=== PATIENT | female | born 1960 | race Caucasian/White ===

== ENCOUNTER 2020-06-25 07:22 | Outpatient (CLI) | payer OTHER, SELFPAY ==
--- NOTE | 2020-06-25 06:51 | ECG_ITS ---
[facility] Test Date: 2020-06-25 Pat Name: Johanny Paulino Department: Room: Gender: Female Functional Consultant: : 1960 Requested By: Prabhu Cortez Order Number: [id number] Joaquin MD: PRABHU CORTEZ Interpretive Statements NAME OF STUDY: LEXISCAN SESTAMIBI STRESS TEST INDICATION: Chest Pain, NOTE: Please note that this is the electrocardiogram portion of the Lexiscan/Sestamibi stress test. The perfusion scan will be documented separately. DATA: Baseline heart rate was 64 beats per minute. Baseline blood pressure was 126/56 millimeters of mercury. Target heart rate was 159. Maximum heart rate achieved was 112. which was 70 % of the predicted target heart rate. Maximum blood pressure was 158/72 millimeters of mercury. The reason for ending the test was completion of the protocol. The patient did not experience any symptoms. ELECTROCARDIOGRAM: BASELINE: Sinus rhythm. Normal axis. Otherwise, no ST-T changes suggestive of ischemia noted. No arrhythmia noted. EXERCISE: After Lexiscan injection, no ST-T changes suggestive of ischemic noted. No arrhythmia noted. CONCLUSION: Please note due to baseline abnormality of the EKG specificity and sensitivity of the EKG portion of LexiScan MIBI stress test will be low 1. EKG not suggestive of ischemia 2. Lexiscan injection unremarkable. 3. Perfusion scan will be documented separately. Electronically Signed On 06-29-2020 20:06:06 MEDICAL INSURANCE CODING SPECIALIST by PRABHU CORTEZ [id number]
--- NOTE | 2020-06-25 06:51 | NMCV_ITS ---
NM josephine perf SPECT r/s* [id number] Johanny Paulino Age: 60 Gender: F : 1960 Exam Date: 06/25/2020 07:50 Ordering Phys: Tamar Cortez MD ([email or web address]) Technologist: ROCIO Wong Exam Location: [facility] Indications: CHEST PAIN STRESS TEST [facility] IMAGE PROTOCOL Rest/Stress 1 Lexiscan Day Radiopharmaceutical Dose (mCi) Administration Site Administered by Rest: Tc-99m 10.6 IV ROCIO De La Rosa Sestamibi Stress:Tc-99m 32.8 IV ROCIO De La Rosa Sestamibi Rest: 25-Jun-2020 60 Discovery 630 Stress: 25-Jun-2020 30 Discovery 630 0.4mg Lexiscan. Images obtained in supine and prone position. SPECT RESULTS Technical Quality: Excellent Raw Data Analysis: Normal Image Corrections: No attenuation or motion correction applied Summed Stress Score: 0 Summed Rest Score: 0 Summed Difference Score: 0 PERFUSION FINDINGS SPECT images demonstrate homogeneous tracer distribution throughout the myocardium. FUNCTIONAL RESULTS (calculated via Gated SPECT) Stress Image LV EF (%): 73 Stress EDV (mL):66 TID: 1 Stress ESV (mL):18 Rest Image LV EF (%): 73 FUNCTIONAL FINDINGS: There is normal left ventricular systolic function. IMPRESSIONS Myocardial perfusion imaging is normal and low probability of obstructive coronary artery disease. EKG segment will be documented separately. Tamar Cortez MD (Electronically Signed) Final Date: 26 June 2020 15:25 S
[2020-06-25 06:53] VITALS: BMI 24.7
[2020-06-25] MEDS: regadenoson 0.4 Mg/5 ml Syringe IVP (08:28)
[2020-06-25 08:36] VITALS: BP 154/68; PULSE 95
== END 2020-06-25 07:23 | disposition home or self-care (01) ==
LOC: CDL 07:22
PROVIDERS: PCP Family Medicine; Visit Provider Internal Medicine Cardiovascular Disease
DX: R07.9 Chest pain, unspecified (principal); I25.10 Atherosclerotic heart disease of native coronary artery without angina pectoris
CPT/HCPCS: 78452; 93017; A9500; J2785

== ENCOUNTER → 2021-08-15 15:29 | Outpatient (BNVA) | payer OTHER, SELFPAY | PROVIDERS: PCP Family Medicine; Visit Provider Internal Medicine Cardiovascular Disease | DX: R00.2 Palpitations (principal); I10 Essential (primary) hypertension; I25.10 Atherosclerotic heart disease of native coronary artery without angina pectoris; F17.200 Nicotine dependence, unspecified, uncomplicated; E78.5 Hyperlipidemia, unspecified | CPT/HCPCS: 80053; 80061; 83721; 84443; 85025 ==

== ENCOUNTER 2021-10-19 14:05 | Emergency (ER) | payer OTHER, SELFPAY ==
[2021-10-19 14:21] VITALS: BP 144/84; PULSE 107; RESP 16; TEMP 37.2; O2SAT 96; BMI 23.2
[2021-10-19 15:42] LABS: Basophils # 0.1 10^3/uL (0.0-0.1); Basophils % 0.4 %; Eosinophils # 0.1 10^3/uL (0.0-0.8); Eosinophils % 0.3 %; Hematocrit 56.3 % (37.0-47.0); Hemoglobin 19.2 g/dL (11.5-15.3); Lymphocytes # 0.9 10^3/uL (0.8-4.8); Lymphocytes % 5.8 %; Mean Corpuscular HGB Conc 34.1 g/dL (30.0-36.0); Mean Corpuscular Hemoglobin 31.4 pg (28.0-34.0); Mean Platelet Volume 10.9 fL (7.4-10.4); Monocytes # 0.5 10^3/uL (0.2-0.9); Monocytes % 3.3 %; Neutrophils # 14.44 10^3/uL (1.8-7.7); Neutrophils % 89.8 %; Nucleated Red Blood Cells % 0 %; Platelet Count 230 10^3/cmm (130-400); Red Blood Count 6.12 10^6/uL (4.1-5.3); Red Cell Distribution Width 13.9 % (12.1-15.1); White Blood Count 16.1 10^3/uL (4.0-10.0)
--- NOTE | 2021-10-19 16:06 | ED_ITS ---
HPI - Nausea/Vomiting/Diarrhea General: Chief complaint: Nausea/Vomiting/Diarrhea Stated complaint: n/v Time Seen by Provider: 10/19/21 15:54 Source: patient Mode of arrival: ambulatory Limitations: no limitations History of Present Illness: 61-year-old female presents emergency room with complaint of nausea vomiting diarrhea and chills that began last night she denies any medic easy melena hematemesis cough confirms she has had little bit of cough patient is a regular smoker who is a low-grade fever. She denies any anosmia. Diarrhea has already resolved cough nausea and vomiting are persisting. MD elicited complaint: nausea, vomiting and diarrhea Onset (ago): day(s) (2) Description of vomiting: watery and bilious Description of diarrhea: lose Associated nausea: Yes Associated abdominal pain: Yes Location of pain: Diffuse Pain consistency: intermittent Severity: mild Quality: cramping Exacerbating factors: none Associated symtoms: Reports nausea; Denies altered mental status, anxiety, bloating, change in vision, chest pain, cough, diaphoresis, decreased urine output, dizziness, dysuria, epistaxis, fatigue, fecal incontinence, fevers/chills, headache(s), anorexia, malaise, myalgias, numbness, palpitations, rash, short of breath, syncope, tenesmus, tinnitus or weakness Review of Systems Const: Denies: fever(s), chills, fatigue, malaise or diaphoresis Eyes: Denies: change in vision ENMT: Denies: tinnitus or epistaxis Card: Denies: chest pain, palpitations, irregular heart rhythm, edema, swelling of feet/ankles or syncope Resp: Denies: dyspnea, productive cough or non-productive cough GI: Reports: abdominal pain, nausea and vomiting; Denies: hematemesis, bloating, fecal incontinence or hematochezia : Denies: flank pain, difficulty voiding, dysuria, urinary frequency or urinary urgency Skin/Breast: Denies: rash or pruritus Neuro: Denies: headache(s) or dizziness Psych: Denies: anxiety PFSH ED PFSH: Medical History ASHD (arteriosclerotic heart disease) Dyslipidemia Hypertension Palpitation Smoker Surgical History S/P cholecystectomy S/P hysterectomy S/P PTCA (percutaneous transluminal coronary angioplasty) Family History Mother Hypertension Heart disease Social History Smoking and tobacco status: current every day smoker History of recent travel: No Physical Exam 2 Const: COMMON NORMALS: no acute distress EXAM LIMITATIONS: no altered mental status GENERAL APPEARANCE: cooperative and comfortable ORIENTATION/CONSCIOUSNESS: Yes awake, Yes oriented to person, Yes oriented to place and Yes oriented to time HENMT: COMMON NORMALS: normocephalic and atraumatic HEAD & SCALP: normocephalic and atraumatic Neck/C-Spine: COMMON NORMALS: no JVD Resp: COMMON NORMALS: normal respiratory effort, No retractions, No use of accessory muscles and clear to auscultation bilaterally AUSCULTATION: clear to auscultation bilaterally Cardio: COMMON NORMALS: no JVD, regular rate, regular rhythm and No murmurs present (Cardio) RATE: regular rate RHYTHM: regular rhythm GI: COMMON NORMALS: Soft to palpation and No hepatosplenomegaly present AUSCULTATION: Yes normoactive bowel sounds PALPATION: Yes Soft to palpation, No Tenderness to palpation present (GI), No Guarding due to palpation present (GI) and Yes No hepatosplenomegaly present Extremity: COMMON NORMALS: normal to inspection, capillary refill normal, no clubbing, cyanosis or edema, no calf tenderness and no pedal edema Neuro: SENSORIUM/ORIENTATION: Yes oriented to person, Yes oriented to place and Yes oriented to time Skin: COMMON NORMALS: no rashes or lesions noted GENERAL SKIN EXAM: no rashes or lesions noted Course Vital Signs: Vital signs: Vital Signs Temperature 99 F 10/19/21 14:21 Pulse Rate 107 H 10/19/21 14:21 Respiratory Rate 16 10/19/21 14:21 Blood Pressure 144/84 10/19/21 14:21 Pulse Oximetry 96 10/19/21 14:21 MDM - Nausea/Vomiting/Diarrhea Medical Decision Making Patient is feeling somewhat better. We will go ahead and discharge home clinical diet for the next 24 to 48 hours Phenergan as needed as needed. She wa s polycythemic some of that I think is her hemoconcentration but in addition notably she does have severe COPD and likely sleep apnea as well encouraged her to follow-up with primary care to get both of these evaluated. Medical Records I reviewed the patient's medical records. Lab Data I reviewed the patient's lab results. : 10/19/21 15:21 10/19/21 15:21 Laboratory Results WBC 16.1 10^3/uL (4.0-10.0) H 10/19/21 15:21 RBC 6.12 10^6/uL (4.1-5.3) H 10/19/21 15:21 Hgb 19.2 g/dL (11.5-15.3) H 10/19/21 15:21 Hct 56.3 % (37.0-47.0) H 10/19/21 15:21 MCV 92.0 fl (81-99) 10/19/21 15:21 MCH 31.4 pg (28.0-34.0) 10/19/21 15:21 MCHC 34.1 g/dL (30.0-36.0) 10/19/21 15:21 RDW 13.9 % (12.1-15.1) 10/19/21 15:21 Plt Count 230 10^3/cmm (130-400) 10/19/21 15:21 MPV 10.9 fL (7.4-10.4) H 10/19/21 15:21 Neut % (Auto) 89.8 % 10/19/21 15:21 Lymph % (Auto) 5.8 % 10/19/21 15:21 [place] % (Auto) 3.3 % 10/19/21 15:21 Eos % (Auto) 0.3 % 10/19/21 15:21 Baso % (Auto) 0.4 % 10/19/21 15:21 Neut # (Auto) 14.44 10^3/uL (1.8-7.7) H 10/19/21 15:21 Lymph # (Auto) 0.9 10^3/uL (0.8-4.8) 10/19/21 15:21 [place] # (Auto) 0.5 10^3/uL (0.2-0.9) 10/19/21 15:21 Eos # (Auto) 0.1 10^3/uL (0.0-0.8) 10/19/21 15:21 Baso # (Auto) 0.1 10^3/uL (0.0-0.1) 10/19/21 15:21 Nucleated RBC % (auto) 0 % 10/19/21 15:21 Nucleated RBCs # 0.0 /100WBC 10/19/21 15:21 Sodium 133 mmol/L (136-145) L 10/19/21 15:21 Potassium 4.0 mmol/L (3.5-5.1) 10/19/21 15:21 Chloride 98 mmol/L (98-107) 10/19/21 15:21 Carbon Dioxide 21 mmol/L (22-29) L 10/19/21 15:21 Anion Gap 18.0 (5-19) 10/19/21 15:21 BUN 15 mg/dL (8-23) 10/19/21 15:21 Creatinine 0.8 mg/dL (0.5-0.9) 10/19/21 15:21 GFR Calculation 72.7 mL/min (90-130) L 10/19/21 15:21 Glucose 108 mg/dL (65-115) 10/19/21 15:21 Calculated Osmolality 277 mOsm/kg (285-295) L 10/19/21 15:21 Calcium 9.2 mg/dL (8.5-10.5) 10/19/21 15:21 Total Bilirubin 0.5 mg/dL (0.15-1.2) 10/19/21 15:21 AST 21 U/L (0-32) 10/19/21 15:21 ALT 25 U/L (0-33) 10/19/21 15:21 Alkaline Phosphatase 121 IU/L (35-105) H 10/19/21 15:21 Total Protein 8.1 g/dL (6.6-8.7) 10/19/21 15:21 Albumin 4.7 g/dL (3.5-5.2) 10/19/21 15:21 Globulin 3.4 g/dL (1.3-4.6) 10/19/21 15:21 Lipase 14 U/L (13-60) 10/19/21 15:21 Urine Color Yellow (Yellow) 10/19/21 17:14 Urine Appearance Clear (CLEAR) 10/19/21 17:14 Urine pH 6 (5-7) 10/19/21 17:14 Ur Specific [place] 1.015 (1.005-1.030) 10/19/21 17:14 Urine Protein Neg (Negative) 10/19/21 17:14 Urine Glucose (UA) Norm (Normal) 10/19/21 17:14 Urine Ketones 1+ (Negative) H 10/19/21 17:14 Urine Blood Neg (Negative) 10/19/21 17:14 Urine Nitrate Negative (Negative) 10/19/21 17:14 Urine Bilirubin 1+ (Negative) H 10/19/21 17:14 Urine Urobilinogen Norm mg/dL (Negative) 10/19/21 17:14 Ur Leukocyte Esterase Negative (Negative) 10/19/21 17:14 Discharge Plan Discharge Patient Disposition: Home Clinical Impression: Gastroenteritis, Polycythemia, secondary Condition: Stable Prescriptions: New promethazine 25 mg tablet 25 mg PO Q6H PRN (Reason: nausea and vomiting) Qty: 20 0RF No Action lisinopril 2.5 mg tablet 2.5 mg PO DAILY 0RF clopidogrel [Plavix] 75 mg tablet 75 mg PO DAILY 0RF paroxetine HCl 10 mg tablet 10 mg PO DAILY 0RF nitroglycerin [Nitrostat] 0.4 mg tablet, sublingual 0.4 mg SUBLINGUAL Q5M PRN (Reason: Chest Pain) 0RF oxybutynin chloride 10 mg tablet extended release 24hr 10 mg PO DAILY 0RF rosuvastatin 10 mg tablet 10 mg PO DAILY 0RF ascorbic acid (vitamin C) 500 mg tablet 500 mg PO DAILY 0RF isosorbide mononitrate 30 mg tablet extended release 24 hr 30 mg PO DAILY Qty: 90 3RF metoprolol tartrate 25 mg tablet 12.5 mg PO BID 0RF Nasonex 50 mcg/actuation [place],Non-Aerosol 2 spray INTRANASAL DAILY PRN (Reason: Allergy Symptoms) 0RF Rx Instructions: administer into each nostril albuterol sulfate 90 mcg/actuation Hfa Aerosol Inhaler 2 puff INHALATION QID PRN (Reason: Shortness Of Breath) 0RF omeprazole 20 mg Tablet,Delayed Release (Dr/Ec) 20 mg PO DAILY 0RF Combivent Respimat 20-100 mcg/actuation Mist 1 puff INHALATION Q4H 0RF Discharge Orders: Discharge ED (Routine); Ordered 10/19/21 Ordered By: Austin Camara Referrals: Javier Collins, [Primary Care Provider] - Discharge Diet: Clear Liquid Discharge Activity: Increase activity as tolerated Patient Instructions: Opioid Safety Activity Restrictions/Additional Instructions: Clear liquid diet for 1 to 2 days and advance as tolerated use promethazine as needed. Return if you have further problems. Coding Level of Care Code ED Staff [employer] Information [employer] Officer for Zayg Fwd Exam Comprehensive
[2021-10-19 16:10] LABS: Alanine Aminotransferase 25 U/L (0-33); Albumin Level 4.7 g/dL (3.5-5.2); Alkaline Phosphatase 121 IU/L (35-105); Aspartate Amino Transferase 21 U/L (0-32); Blood Urea Nitrogen 15 mg/dL (8-23); Calcium 9.2 mg/dL (8.5-10.5); Carbon Dioxide 21 mmol/L (22-29); Chloride 98 mmol/L (98-107); Globulin 3.4 g/dL (1.3-4.6); Glomerular Filtration Rate 72.7 mL/min (90-130); Glucose 108 mg/dL (65-115); Lipase 14 U/L (13-60); Osmolality Calculated 277 mOsm/kg (285-295); Sodium 133 mmol/L (136-145); Total Bilirubin 0.5 mg/dL (0.15-1.2); Total Protein 8.1 g/dL (6.6-8.7)
[2021-10-19] MEDS: ondansetron 2 mg/ML SDV 2 mL 4 MG IVP (16:23)
[2021-10-19] MEDS: sodium chloride 0.9% 1,000 ML 999 ML IV (16:23)
[2021-10-19 17:20] LABS: Add Urine Microscopic? NO; Charge for UA Resulting for Rev
[2021-10-19 17:27] LABS: Specific Gravity, Urine 1.015 (1.005-1.030); Urine Appearance Clear (CLEAR); Urine Color Yellow (Yellow); pH Urine 6 (5-7)
[2021-10-19 17:28] LABS: Bilirubin Urine 1+ (Negative); Blood Urine Neg (Negative); Glucose Urine UA Norm (Normal); Ketones Urine 1+ (Negative); Leukocyte Esterase Urine Negative (Negative); Nitrate Urine Negative (Negative); Protein Urine Neg (Negative); Urobilinogen Urine Norm (Negative)
== END 2021-10-19 17:58 | disposition home or self-care (01) ==
PROVIDERS: Physician Assistant; Emergency Provider Family Medicine; PCP Family Medicine
DX: K52.9 Noninfective gastroenteritis and colitis, unspecified (principal); D75.1 Secondary polycythemia; Z79.02 Long term (current) use of antithrombotics/antiplatelets; E78.5 Hyperlipidemia, unspecified; I10 Essential (primary) hypertension; F17.210 Nicotine dependence, cigarettes, uncomplicated
CPT/HCPCS: 80053; 81003; 83690; 85025; 96361; 96374; 99284; J2405; J7030

== ENCOUNTER 2022-02-22 08:08 | Outpatient (CLI) | payer OTHER, SELFPAY ==
--- NOTE | 2022-02-22 08:36 | MM_ITS ---
WS: [id number] VIEWS: MLO and CC views both breasts. 3D digital tomosynthesis is also included in this exam. Comparison made with prior exam of 04/03/2013, 08/10/2014, 01/28/2015, 10/04/2015, 04/04/2018.. Findings: There was no sign of mass, architectural distortion or suspicious calcification in either breast. Sc attered fibroglandular densities MM/[place] [id number] Impression: BI-RADS: 2-Benign FOLLOW-UP: 1 Year Follow-up This mammogram was also analyzed by the Computer Aided Detection System R2 Imag e Welding Lead Burner.
== END 2022-02-22 08:09 | disposition home or self-care (01) ==
LOC: RAD 08:09
PROVIDERS: PCP Family Medicine; Visit Provider Family Medicine
DX: Z12.31 Encounter for screening mammogram for malignant neoplasm of breast (principal)
CPT/HCPCS: 77063; 77067

== ENCOUNTER → 2022-07-11 10:50 | Outpatient (BNVA) | payer OTHER, SELFPAY | PROVIDERS: PCP Family Medicine; Visit Provider Family Medicine | DX: D75.1 Secondary polycythemia (principal); E78.5 Hyperlipidemia, unspecified; I10 Essential (primary) hypertension; F17.200 Nicotine dependence, unspecified, uncomplicated; I25.10 Atherosclerotic heart disease of native coronary artery without angina pectoris | CPT/HCPCS: 80053; 80061; 82728; 83540; 85025 ==

== ENCOUNTER → 2022-07-19 10:17 | Outpatient (BNVA) | payer OTHER, SELFPAY | PROVIDERS: PCP Family Medicine; Visit Provider Family Medicine | DX: D75.1 Secondary polycythemia (principal); E78.5 Hyperlipidemia, unspecified; I10 Essential (primary) hypertension; R00.2 Palpitations | CPT/HCPCS: 81219; 81256; 81270; 81279; 81339; 81403; 81479; 82668; 83550; 84466 ==

== ENCOUNTER 2022-08-29 10:15 | Oncology outpatient (recurring) (ONCR) | payer OTHER, SELFPAY ==
[2022-08-29 12:26] LABS: Basophils # 0.1 10^3/uL (0.0-0.1); Basophils % 1.1 %; Eosinophils # 0.3 10^3/uL (0.0-0.8); Hematocrit 50.3 % (37.0-47.0); Hemoglobin 16.7 g/dL (11.5-15.3); Lymphocytes # 2.7 10^3/uL (0.8-4.8); Lymphocytes % 27.9 %; Mean Corpuscular HGB Conc 33.2 g/dL (30.0-36.0); Mean Corpuscular Hemoglobin 31.2 pg (28.0-34.0); Mean Corpuscular Volume 93.8 fl (81-99); Mean Platelet Volume 11.2 fL (7.4-10.4); Monocytes # 0.8 10^3/uL (0.2-0.9); Monocytes % 8.3 %; Neutrophils # 5.74 10^3/uL (1.8-7.7); Neutrophils % 59.4 %; Nucleated Red Blood Cells % 0 %; Platelet Count 237 10^3/cmm (130-400); Red Blood Count 5.36 10^6/uL (4.1-5.3); Red Cell Distribution Width 13.5 % (12.1-15.1); White Blood Count 9.7 10^3/uL (4.0-10.0)
[2022-08-29 12:53] LABS: Alanine Aminotransferase 27 U/L (0-33); Albumin Level 4.2 g/dL (3.5-5.2); Alkaline Phosphatase 111 U/L (35-105); Anion Gap 17.1 (5-19); Aspartate Amino Transferase 23 U/L (0-32); Blood Urea Nitrogen 11 mg/dL (8-23); Calcium 9.1 mg/dL (8.5-10.5); Carbon Dioxide 22 mmol/L (22-29); Chloride 103 mmol/L (98-107); Creatinine Clr Calc Pharmacy 71.9296; Globulin 2.6 g/dL (1.3-4.6); Glomerular Filtration Rate 84.5 mL/min (90-130); Glucose 100 mg/dL (65-115); Lactate Dehydrogenase 158 U/L (135-214); Osmolality Calculated 285 mOsm/kg (285-295); Potassium 4.1 mmol/L (3.5-5.1); Sodium 138 mmol/L (136-145); Total Bilirubin 0.4 mg/dL (0.15-1.2); Total Protein 6.8 g/dL (6.6-8.7)
[2022-08-30 15:08] LABS: Erythropoietin 10.3 mIU/mL (2.6-18.5)
[2022-09-06 16:10] LABS: CALR Exon 9 Mutation NOT DETECTED (NOT DETECTED); CSF3R Exon 14/17 Mutation NOT DETECTED (NOT DETECTED); JAK2 Exon 12 Mutation NOT DETECTED (NOT DETECTED); JAK2 V617 Block Specimen ID NG; JAK2 V617 Clinical Indication NG; JAK2 V617 Mutation NOT DETECTED (NOT DETECTED); JAK2 V617 Specimen Source NG; MPL Exon 12 Mutation NOT DETECTED (NOT DETECTED)
== END 2022-09-27 23:59 | disposition home or self-care (01) ==
PROVIDERS: PCP Family Medicine; Visit Provider Internal Medicine Medical Oncology
DX: D75.1 Secondary polycythemia (principal)
CPT/HCPCS: 36415; 80053; 81270; 81279; 81339; 81479; 82668; 83615; 85025

== ENCOUNTER 2022-12-18 12:11 | Oncology outpatient (recurring) (ONCR) | payer OTHER, SELFPAY ==
[2022-12-18 12:35] VITALS: BP 148/80; PULSE 68; RESP 17; TEMP 35.9; O2SAT 94
[2022-12-18 12:54] LABS: Basophils # 0.1 10^3/uL (0.0-0.1); Basophils % 1.1 %; Eosinophils # 0.3 10^3/uL (0.0-0.8); Eosinophils % 2.9 %; Hematocrit 47.9 % (37.0-47.0); Hemoglobin 16.2 g/dL (11.5-15.3); Lymphocytes # 2.4 10^3/uL (0.8-4.8); Lymphocytes % 21.7 %; Mean Corpuscular HGB Conc 33.8 g/dL (30.0-36.0); Mean Corpuscular Volume 91.6 fl (81-99); Mean Platelet Volume 10.8 fL (7.4-10.4); Monocytes % 8.7 %; Neutrophils # 7.32 10^3/uL (1.8-7.7); Neutrophils % 65.2 %; Nucleated Red Blood Cells % 0 %; Platelet Count 236 10^3/cmm (130-400); Red Blood Count 5.23 10^6/uL (4.1-5.3); Red Cell Distribution Width 13.6 % (12.1-15.1); White Blood Count 11.2 10^3/uL (4.0-10.0)
[2022-12-18 13:09] LABS: Alanine Aminotransferase 23 U/L (0-33); Albumin Level 4.1 g/dL (3.5-5.2); Alkaline Phosphatase 101 U/L (35-105); Anion Gap 13.1 (5-19); Aspartate Amino Transferase 18 U/L (0-32); Blood Urea Nitrogen 11 mg/dL (8-23); Calcium 8.7 mg/dL (8.5-10.5); Carbon Dioxide 23 mmol/L (22-29); Chloride 105 mmol/L (98-107); Globulin 2.4 g/dL (1.3-4.6); Glucose 87 mg/dL (65-115); Osmolality Calculated 283 mOsm/kg (285-295); Potassium 4.1 mmol/L (3.5-5.1); Sodium 137 mmol/L (136-145); Total Bilirubin 0.3 mg/dL (0.15-1.2); Total Protein 6.5 g/dL (6.6-8.7)
== END 2022-12-28 23:59 | disposition home or self-care (01) ==
PROVIDERS: PCP Electrodiagnostic Medicine; Visit Provider Internal Medicine Medical Oncology
DX: D75.1 Secondary polycythemia (principal)
CPT/HCPCS: 36415; 80053; 85025

== ENCOUNTER 2023-02-08 10:51 | Outpatient (CLI) | payer OTHER, SELFPAY ==
--- NOTE | 2023-02-08 11:44 | US_ITS ---
WS: [id number] THYROID ULTRASOUND HISTORY: ABNORMAL THYROID FUNCTION TESTS COMPARISON: 06/27/2011 Right lobe: 1.4 cm x 1.4 cm x 4.1 cm (w x ap x l). Volume: 4.4 cm3. Normal size and echotexture. No significant are dominant nodules are present. Previously described co lloid cyst in the central gland is not identified today. Left lobe: 1.2 cm x 1.2 cm x 4.3 cm (w x ap x l). Volume: 3.2 cm3. Normal size and echotexture. No significant or dominant nodules are present. Colloid cyst mid LEFT gl and measures 5 mm. Isthmus: 0.3 cm. IMPRESSION: 1. No suspicious of dominant nodule or microcalcifications. 2. Tiny colloid cyst central LEFT gland. No additional follow-up necessary.
== END 2023-02-08 10:52 | disposition home or self-care (01) ==
LOC: RAD 10:52
PROVIDERS: PCP Electrodiagnostic Medicine; Visit Provider Electrodiagnostic Medicine
DX: R94.6 Abnormal results of thyroid function studies (principal)
CPT/HCPCS: 76536

== ENCOUNTER 2023-03-19 13:21 | Oncology outpatient (recurring) (ONCR) | payer OTHER, SELFPAY ==
[2023-03-19 12:02] VITALS: BP 129/81; PULSE 73; RESP 16; TEMP 36.6; O2SAT 97
[2023-03-19 12:21] LABS: Basophils # 0.1 10^3/uL (0.0-0.1); Basophils % 1.1 %; Eosinophils # 0.3 10^3/uL (0.0-0.8); Eosinophils % 3.3 %; Hematocrit 45.4 % (36-47); Lymphocytes # 2.5 10^3/uL (0.8-4.8); Lymphocytes % 28.3 %; Mean Corpuscular HGB Conc 34.4 g/dL (30-55); Mean Corpuscular Hemoglobin 31.4 pg (27-33); Mean Corpuscular Volume 91.3 fl (85-98); Mean Platelet Volume 10.8 fL (7.4-10.4); Monocytes # 0.7 10^3/uL (0.2-0.9); Monocytes % 8.3 %; Neutrophils # 5.23 10^3/uL (1.8-7.7); Neutrophils % 58.7 %; Nucleated Red Blood Cells % 0 %; Platelet Count 210 10^3/cmm (157-399); Red Blood Count 4.97 10^6/uL (3.85-5.65); Red Cell Distribution Width 14.3 % (12.1-15.1); White Blood Count 8.91 10^3/uL (3.29-11.43)
== END 2023-03-29 23:59 | disposition home or self-care (01) ==
PROVIDERS: Internal Medicine Medical Oncology; PCP Electrodiagnostic Medicine; Visit Provider Internal Medicine Medical Oncology
DX: D75.1 Secondary polycythemia (principal); Z79.899 Other long term (current) drug therapy
CPT/HCPCS: 36415; 85025

== ENCOUNTER 2023-03-21 07:34 | Outpatient (CLI) | payer OTHER, SELFPAY ==
--- NOTE | 2023-03-21 07:42 | MM_ITS ---
WS: [id number] BILATERAL SCREENING DIGITAL TOMOSYNTHESIS MAMMOGRAM WITH CAD HISTORY: SCREENING COMPARISON: 02/22/2022, 04/04/2018 Bilateral CC and MLO views with tomosynthesis and synthetic mammography submitted. Computer aided det ection analyzed. Breast composition: There are scattered areas of fibroglandular density. No suspicious masses, microc alcifications or architectural distortion. Benign calcifications LEFT breast. IMPRESSION: MM/[place] [id number] BI-RADS: 2-Benign FOLLOW UP: 1 Year Follow-up
== END 2023-03-21 07:35 | disposition home or self-care (01) ==
LOC: RAD 07:34
PROVIDERS: PCP Electrodiagnostic Medicine; Visit Provider Electrodiagnostic Medicine
DX: Z12.31 Encounter for screening mammogram for malignant neoplasm of breast (principal)
CPT/HCPCS: 77063; 77067

== ENCOUNTER 2024-06-04 07:46 | Outpatient (CLI) | payer MEDICARE, OTHER, SELFPAY ==
--- NOTE | 2024-06-04 07:51 | MM_ITS ---
WS: [id number] BILATERAL SCREENING DIGITAL TOMOSYNTHESIS MAMMOGRAM WITH CAD HISTORY: SCREENING COMPARISON: 03/19/2023, 02/22/2022, 04/04/2018 Bilateral CC and MLO views with tomosynthesis and synthetic mammography submitted. Computer aided detection analyzed. Breast composition: There are scattered areas of fibroglandular density. No suspicious masses, microcalcifications or architectural distortion. Benign calcifications LEFT breast. MM/MM scr BI tomosynthesis [id number] IMPRESSION: BI-RADS: 2 - Benign. FOLLOW UP: 1 Year Follow-up
== END 2024-06-04 07:47 | disposition home or self-care (01) ==
LOC: RAD 07:49
PROVIDERS: PCP Electrodiagnostic Medicine; Visit Provider Electrodiagnostic Medicine
DX: Z12.31 Encounter for screening mammogram for malignant neoplasm of breast (principal); R92.323 Mammographic fibroglandular density, bilateral breasts; R92.1 Mammographic calcification found on diagnostic imaging of breast
CPT/HCPCS: 77063; 77067

== ENCOUNTER → 2024-07-01 13:34 | Outpatient (BNVA) | payer MEDICARE, OTHER, SELFPAY | PROVIDERS: PCP Electrodiagnostic Medicine; Visit Provider Internal Medicine | DX: I10 Essential (primary) hypertension (principal); I25.10 Atherosclerotic heart disease of native coronary artery without angina pectoris; E78.5 Hyperlipidemia, unspecified; F17.210 Nicotine dependence, cigarettes, uncomplicated | CPT/HCPCS: 99214 ==

== ENCOUNTER 2024-10-02 19:05 | Emergency (ER) | payer MEDICARE, OTHER, SELFPAY ==
--- NOTE | 2024-10-02 19:07 | ECG_ITS ---
[facility]24[facility]02 Pat Name: Johanny Paulino Department: Room: Gender: Female Book Packer: : 1960 Requested By: Alicia Avery Order Number: [id number] Reading MD: PRABHU MILLAN Measurements Intervals [place] Rate: 78 P: -48 MS: 141 QRS: 76 QRSD: 88 T: 58 QT: 363 QTc: 416 Interpretive Statements ECTOPIC ATRIAL RHYTHM ABNORMAL RHYTHM ECG Compared to ECG 07/16/2017 08:56:25 No significant changes Electronically Signed On 10-04-2024 23:47:44 CDT by PRABHU MILLAN [id number]
[2024-10-02 19:09] VITALS: BP 110/68; PULSE 78; RESP 16; TEMP 36.7; O2SAT 94; BMI 23.0
--- NOTE | 2024-10-02 19:37 | ED_ITS ---
HPI - Chest Pain 2 General: Chief Complaint: Chest Pain Stated Complaint: CP Time Seen by Provider: 10/02/24 19:37 History of Present Illness: Patient is a 64-year-old female with history of CAD,PCI of RCA 2015, on Plavix, smoker, that presented to the ED that started having consistent substernal chest pressure today, that has continued throughout the day. This has been going on and off for the last 2 weeks, however today this was consistent till negative nitroglycerin. She has not had aspirin today. She was stopped on aspirin by her primary senior software development engineer and remains on Plavix for prevention, which patient states she is compliant. She does have association of shortness of breath, however no nausea and vomiting today or with symptoms. This does appear to be getting worse over time per patient. Associated symptoms: Reports dyspnea; Deny abdominal pain, fever(s), nausea, palpitations or vomiting Related Data Home Medications ?Medication ?Instructions ?Recorded ?Confirmed ascorbic acid (vitamin C) 500 mg 500 mg PO DAILY 08/1507/01/24 tablet albuterol sulfate 90 mcg/actuation 2 puff inhalation Q ID PRN 10/19/21 07/01/24 aerosol inhaler Shortness Of Breath ipratropium 20 mcg-albuterol 100 1 puff inhalation Q4H 10/19/21 07/01/24 mcg/actuation mist for inhalation (Combivent Respimat) mometasone 50 mcg/actuation nasal 2 spray intranasal D AILY PRN 10/19/21 07/01/24 spray Allergy Symptoms omeprazole 20 mg tablet,delayed 20 mg PO DAILY 2 07/01/24 release Previous Rx's ?Medication ?Instructions ?Recorded promethazine 25 mg tablet 25 mg PO Q6H PRN nausea and 10/19/21 vomiting #20 tabs clopidogrel 75 mg tablet (Plavix) 75 mg PO DAILY #90 t abs 10/04/22 lisinopril 5 mg tablet 5 mg PO DAILY #90 tabs 10/04 oxybutynin chloride 10 mg 10 mg PO DAILY bladder #90 t abs 10/04/22 tablet,extended release 24 hr metoprolol tartrate 25 mg tablet 25 mg PO DAILY #90 ta bs 11/08/22 rosuvastatin 10 mg tablet 10 mg PO DAILY #90 tabs 10/28 12/20 paroxetine HCl 10 mg tablet 10 mg PO DAILY #90 tabs nitroglycerin 0.4 mg sublingual 0.4 mg sublingual Q5M PRN Chest 07/01/24 tablet (Nitrostat) Pain #26 tabs isosorbide mononitrate 30 mg See Rx Instructions .Rout e 08/11/24 tablet,extended release 24 hr .COMPLEX #90 tabs Allergies Allergy/AdvReac Type Severity Reaction Status Date / Time Penicillins Allergy Unknown Unknown Verified 07/01/24 14:25 Review of Systems 2 General: Reports: 10 or more systems reviewed and unremarkable except in HPI and below Const: Denies: fever(s) or chills ENMT: Denies: throat pain, odynophagia or swelling of lips/tongue Card: Reports: chest pain; Denies: palpitations Resp: Reports: dyspnea; Denies: productive cough GI: Denies: abdominal pain, nausea or vomiting : Denies: flank pain or difficulty voiding Musc: Denies: neck pain, back pain, extremity pain or extremity swelling Neuro: Denies: headache(s) or weakness in extremities Psych: Denies: anxiety or depression PFSH ED 2 PFSH: Medical History Secondary polycythemia Coronary artery disease Dyslipidemia Smoker Palpitation Hypertension ASHD (arteriosclerotic heart disease) Surgical History S/P hysterectomy S/P cholecystectomy S/P PTCA (percutaneous transluminal coronary angioplasty) Family History Mother Hypertension Heart disease Father COPD (chronic obstructive pulmonary disease) Social History Smoking and tobacco/nicotine status: current every day tobacco/nicotine user (1.5 ppd) cigarettes [ Other cigarette details: smoked x 40+ years] Alcohol intake: current Physical Exam 2 Const: COMMON NORMALS: no acute distress, patient oriented x3, no limitations, healthy appearing and alert GENERAL APPEARANCE: cooperative HENMT: COMMON NORMALS: normocephalic, atraumatic and Normal external nose present HEAD & SCALP: normocephalic and atraumatic NOSE: Normal external nose present and Normal nares present GENERAL EAR: hearing grossly impaired MOUTH: Normal oral and palatal mucosa present, lip normal, tongue normal and Normal salivary glands and ducts present THROAT: posterior oropharynx normal and tonsils normal Eye: COMMON NORMALS: Equal, round and reactive pupils present, EOMs intact bilaterally, conjunctivae normal, no scleral icterus and no papilledema G ENERAL EYE: appearance normal, both eyes and all related structures VISUAL ACUITY: Yes acuity normal ALIGNMENT: Yes alignment normal CONJUNCTIVA: Yes conjunctivae normal SCLERA: sclerae normal PUPIL: Yes Equal, round and reactive pupils present EOM: Yes EOM abnormal DIRECT OPHTHALMOSCOPY: Yes no papilledema Neck/C-Spine: COMMON NORMALS: full ROM, no lymphadenopathy and Thyroid normal THYROID: Thyroid normal Lymph: LYMPHATIC: no lymphadenopathy noted and No no lymphedema noted Chest: CHEST: Yes abnormal inspection of the chest and Yes Symmetrical chest wall rise Resp: COMMON NORMALS: normal respiratory effort, No retractions, No use of accessory muscles and clear to auscultation bilaterally AUSCULTATION: clear to auscultation bilaterally Cardio: COMMON NORMALS: regular rate, regular rhythm, S1 normal heart sound present, S2 normal heart sound present and Peripheral pulses 2+ throughout R ATE: regular rate RHYTHM: regular rhythm HEART SOUNDS: S1 normal heart sound present and S2 normal heart sound present PERIPHERAL PULSES: Peripheral pulses 2+ throughout GI: COMMON NORMALS: Normal to inspection, nondistended, normoactive bowel sounds present and Soft to palpation INSPECTION: Yes normal to inspection AUSCULTATION: Yes normoactive bowel sounds PALPATION: Yes Soft to palpation : COMMON NORMALS: Yes no CVA tenderness BLADDER/KIDNEY EXAM: Yes no CVA tenderness Back/Pelvis: COMMON NORMALS: no CVA tenderness Neuro: COMMON NORMALS: patient oriented x3 SENSORIUM/ORIENTATION: Yes alert Course 2 Vital Signs: Vital signs: Vital Signs Temperature 98.0 F 10/02/24 19:09 Pulse Rate 80 10/02/24 22:43 Respiratory Rate 16 10/02/24 22:43 Blood Pressure 123/68 10/02/24 22:43 Pulse Oximetry 91 10/02/24 22:43 Oxygen Delivery Me thod Room Air 10/02/24 20:35 MDM - Chest Pain Medical Decision Making Patient is 64-year-old female with previous PCI to RCA in 2016 that presents with on and off chest pain for 2 weeks, worse and consistent today with improvement with nitroglycerin. Certainly sounds like an unstable angina situation. Will obtain EKG stat as well as troponin, routine labs, chest x-ray, and further discussed with cardiology if elevated. She will be given aspirin. She has been compliant to her Plavix, however has not been on aspirin and was unaware to take with her chest pain today. Troponin is flat. Patient states she has nitroglycerin at home. I have advised her to be placed on aspirin daily, call her senior software development engineer first thing in the morning, for ER follow-up and any additional concerns. She is to return to the ED with further issues with chest pain. Lab Data 10/02/24 20:11 10/02/24 20:11 Radiology Impressions Chest X-Ray 10/02/24 19:53 IMPRESSION: No acute findings. Laboratory Results WBC 17.60 10^3/uL (3.29-11.43) H 10/02/24 20:11 RBC 5.08 10^6/uL (3.85-5.65) 10/02/24 20:11 Hgb 15.70 g/dL (11.27-16.99) 10/02/24 20:11 Hct 47.1 % (36-47) H 10/02/24 20:11 MCV 92.7 fl (85-98) 10/02/24 20:11 MCH 30.9 pg (27-33) 10/02/24 20:11 MCHC 33.3 g/dL (30-55) 10/02/24 20:11 RDW 13.9 % (12.1-15.1) 10/02/24 20:11 Plt Count 319 10^3/cmm (157-399) 10/02/24 20:11 MPV 10.0 fL (7.4-10.4) 10/02/24 20:11 Neut % (Auto) 76.2 % 10/02/24 20:11 Lymph % (Auto) 14.4 % 10/02/24 20:11 [place] % (Auto) 6.4 % 10/02/24 20:11 Eos % (Auto) 1.5 % 10/02/24 20:11 Baso % (Auto) 0.8 % 10/02/24 20:11 Neut # (Auto) 13.42 10^3/uL (1.8-7.7) H 10/02/24 20:11 Lymph # (Auto) 2.5 10^3/uL (0.8-4.8) 10/02/24 20:11 [place] # (Auto) 1.1 10^3/uL (0.2-0.9) H 10/02/24 20:11 Eos # (Auto) 0.3 10^3/uL (0.0-0.8) 10/02/24 20:11 Baso # (Auto) 0.1 10^3/uL (0.0-0.1) 10/02/24 20:11 Nucleated RBC % (auto) 0 % 10/02/24 20:11 Nucleated RBCs # 0.0 /100WBC 10/02/24 20:11 Sodium 133 mmol/L (136-145) L 10/02/24 20:11 Potassium 4.3 mmol/L (3.5-5.1) 10/02/24 20:11 Chloride 98 mmol/L (98-107) 10/02/24 20:11 Carbon Dioxide 19 mmol/L (22-29) L 10/02/24 20:11 Anion Gap 20.3 (5-19) H 10/02/24 20:11 BUN 7 mg/dL (8-23) L 10/02/24 20:11 Creatinine 0.6 mg/dL (0.5-0.9) 10/02/24 20:11 GFR Calculation 100.3 mL/min (90-130) 10/02/24 20:11 Glucose 80 mg/dL (65-115) 10/02/24 20:11 Calculated Osmolality 273 mOsm/kg (285-295) L 10/02/24 20:11 Calcium 8.8 mg/dL (8.5-10.5) 10/02/24 20:11 Total Bilirubin 0.4 mg/dL (0.15-1.2) 10/02/24 20:11 AST 18 U/L (0-32) 10/02/24 20:11 ALT 20 U/L (0-33) 10/02/24 20:11 Alkaline Phosphatase 105 U/L (35-105) 10/02/24 20:11 Troponin T Baseline 8 ng/L (0-10) 10/02/24 20:11 Troponin T 120 Minute 8.37 ng/L (0-10) 10/02/24 21:52 Delta Troponin T 0.37 ABS# (0-10) 10/02/24 21:52 NT-Pro-B Natriuret Pep 165 pg/mL (0-125) H 10/02/24 20:11 Total Protein 6.8 g/dL (6.6-8.7) 10/02/24 20:11 Albumin 4.1 g/dL (3.5-5.2) 10/02/24 20:11 Globulin 2.7 g/dL (1.3-4.6) 10/02/24 20:11 All radiology interpretation(s) finalized by discharge ED provider radiology interpretation(s): no acute EKG Data EKG 1: Interpretation: Nonspecific ST segment changes lead II, 3, aVF without reciprocal changes or ST segment elevation. QTc 405 Discharge Plan Discharge Patient Disposition: Home Clinical Impression: Chest pain Qualifiers: Chest pain type: unspecified Qualified Code(s): R07.9 - Chest pain, unspecified Condition: Stable Prescriptions: No Action ascorbic acid (vitamin C) 500 mg tablet 500 mg PO DAILY nitroglycerin [Nitrostat] 0.4 mg tablet, sublingual 0.4 mg SUBLINGUAL Q5M PRN (Reason: Chest Pain) Qty: 26 0RF clopidogrel [Plavix] 75 mg tablet 75 mg PO DAILY Qty: 90 3RF lisinopril 5 mg tablet 5 mg PO DAILY Qty: 90 3RF oxybutynin chloride 10 mg tablet extended release 24hr 10 mg PO DAILY Qty: 90 3RF metoprolol tartrate 25 mg tablet 25 mg PO DAILY Qty: 90 3RF rosuvastatin 10 mg tablet 10 mg PO DAILY Qty: 90 3RF paroxetine HCl 10 mg tablet 10 mg PO DAILY Qty: 90 1RF isosorbide mononitrate 30 mg tablet extended release 24 hr See Rx Instructions .ROUTE .COMPLEX Qty: 90 3RF Dose Instruction: TAKE 1 TABLET BY MOUTH DAILY Rx Instructions: TAKE 1 TABLET BY MOUTH DAILY Nasonex 50 mcg/actuation [place],Non-Aerosol 2 spray INTRANASAL DAILY PRN (Reason: Allergy Symptoms) Rx Instructions: administer into each nostril albuterol sulfate 90 mcg/actuation Hfa Aerosol Inhaler 2 puff INHALATION QID PRN (Reason: Shortness Of Breath) omeprazole 20 mg Tablet,Delayed Release (Dr/Ec) 20 mg PO DAILY Combivent Respimat 20-100 mcg/actuation Mist 1 puff INHALATION Q4H promethazine 25 mg tablet 25 mg PO Q6H PRN (Reason: nausea and vomiting) Qty: 20 0RF Discharge Orders: Discharge ED (Routine); Ordered 10/02/24 Ordered By: Alicia Avery Referrals: Oleksandr Purdy DO [Primary Care Provider, Family Practice] Patient Instructions: Chest Pain (ED) Activity Restrictions/Additional Instructions: Call your senior software development engineer first thing in a.m. No ischemic changes/acute issues with your heart were going on today. This does not mean that you do not have blockages that need to be further investigated. Feel free to return to the ED if you have further chest pain. You indicated you had nitroglycerin at home. You can utilize nitroglycerin for chest pain. Please start the aspirin, 81 mg daily as we discussed. Print Language: Indonesian Coding Level of Care Code ED Electrostatic Paint Operator for Shannan Beverly
--- NOTE | 2024-10-02 19:53 | ECG_ITS ---
[facility] Date: 2024-10-02 Pat Name: Johanny Paulino Department: Room: Gender: Female Padder: : 1960 Requested By: Alicia Avery Order Number: [id number] Reading MD: PRABHU MILLAN Measurements Intervals [place] Rate: 85 P: -34 IA: 132 QRS: 75 QRSD: 85 T: 68 QT: 363 QTc: 432 Interpretive Statements SINUS RHYTHM Compared to ECG 07/16/2017 08:56:25 No significant changes Electronically Signed On 10-04-2024 23:47:46 CDT by PRABHU MILLAN [email or web address] [id number]
--- NOTE | 2024-10-02 19:53 | XRR_ITS ---
PROCEDURE INFORMATION: Exam: XR Chest Exam date and time: 10/02/2024 7:57 PM Age: 64 years old Clinical indication: Pain; Chest pressure; Additional info: Chest pain TECHNIQUE: Imaging protocol: Radiologic exam of the chest. Views: 1 view. COMPARISON: No relevant prior studies available. FINDINGS: Lungs: Unremarkable. No consolidation. Pleural spaces: Unremarkable. No pleural effusion. No pneumothorax. Heart/Mediastinum: Unremarkable. No cardiomegaly. Bones/joints: Unremarkable. XR/XR chest 1V portable [id number] IMPRESSION: No acute findings.
[2024-10-02] MEDS: nitroglycerin 0.4 mg sublingual Tablet SUBLINGUAL ×2 (20:26→20:36)
[2024-10-02] MEDS: aspirin 81 mg Chew Tablet 324 MG PO (20:26)
[2024-10-02 20:27] VITALS: BP 126/73; PULSE 80; RESP 17; O2SAT 93
[2024-10-02 20:32] VITALS: BP 118/70; PULSE 88; RESP 19; O2SAT 92
[2024-10-02 20:35] VITALS: BP 108/58; PULSE 86; RESP 18; O2SAT 91
[2024-10-02 21:05] LABS: Basophils # 0.1 10^3/uL (0.0-0.1); Basophils % 0.8 %; Eosinophils # 0.3 10^3/uL (0.0-0.8); Eosinophils % 1.5 %; Hematocrit 47.1 % (36-47); Lymphocytes # 2.5 10^3/uL (0.8-4.8); Lymphocytes % 14.4 %; Mean Corpuscular HGB Conc 33.3 g/dL (30-55); Mean Corpuscular Hemoglobin 30.9 pg (27-33); Mean Corpuscular Volume 92.7 fl (85-98); Monocytes # 1.1 10^3/uL (0.2-0.9); Monocytes % 6.4 %; Neutrophils # 13.42 10^3/uL (1.8-7.7); Neutrophils % 76.2 %; Nucleated Red Blood Cells % 0 %; Platelet Count 319 10^3/cmm (157-399); Red Blood Count 5.08 10^6/uL (3.85-5.65); Red Cell Distribution Width 13.9 % (12.1-15.1); Troponin(5th) Baseline 8 ng/L (0-10)
[2024-10-02 21:15] LABS: Alanine Aminotransferase 20 U/L (0-33); Albumin Level 4.1 g/dL (3.5-5.2); Alkaline Phosphatase 105 U/L (35-105); Anion Gap 20.3 (5-19); Aspartate Amino Transferase 18 U/L (0-32); Blood Urea Nitrogen 7 mg/dL (8-23); Calcium 8.8 mg/dL (8.5-10.5); Carbon Dioxide 19 mmol/L (22-29); Chloride 98 mmol/L (98-107); Creatinine Clr Calc Pharmacy 60.9021; Globulin 2.7 g/dL (1.3-4.6); Glomerular Filtration Rate 100.3 mL/min (90-130); Glucose 80 mg/dL (65-115); NT Pro B Type Natriuretic Pept 165 pg/mL (0-125); Osmolality Calculated 273 mOsm/kg (285-295); Potassium 4.3 mmol/L (3.5-5.1); Sodium 133 mmol/L (136-145); Total Bilirubin 0.4 mg/dL (0.15-1.2); Total Protein 6.8 g/dL (6.6-8.7)
--- NOTE | 2024-10-02 21:52 | ECG_ITS ---
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
[2024-10-02 22:13] LABS: Troponin 5 2HR 8.37 ng/L (0-10); Troponin 5 2HR Delta 0.37 ABS# (0-10)
[2024-10-02 22:43] VITALS: BP 123/68; PULSE 80; RESP 16; O2SAT 91
== END 2024-10-02 22:43 | disposition home or self-care (01) ==
PROVIDERS: Emergency Provider Physician Assistant; PCP Electrodiagnostic Medicine
DX: R07.9 Chest pain, unspecified (principal); Z79.02 Long term (current) use of antithrombotics/antiplatelets; F17.210 Nicotine dependence, cigarettes, uncomplicated; E78.5 Hyperlipidemia, unspecified; I25.10 Atherosclerotic heart disease of native coronary artery without angina pectoris; I10 Essential (primary) hypertension
CPT/HCPCS: 36415; 71045; 80053; 83880; 84484; 85025; 93005; 99285; J9999

== ENCOUNTER → 2024-10-16 13:24 | Outpatient (BNVA) | payer MEDICARE, OTHER, SELFPAY | PROVIDERS: PCP Electrodiagnostic Medicine; Visit Provider Nurse Practitioner Family | DX: I25.10 Atherosclerotic heart disease of native coronary artery without angina pectoris (principal); Z09 Encounter for follow-up examination after completed treatment for conditions other than malignant neoplasm; D75.1 Secondary polycythemia; Z79.02 Long term (current) use of antithrombotics/antiplatelets; Z79.82 Long term (current) use of aspirin; Z98.61 Coronary angioplasty status; F17.210 Nicotine dependence, cigarettes, uncomplicated; E78.5 Hyperlipidemia, unspecified; F17.200 Nicotine dependence, unspecified, uncomplicated; R07.9 Chest pain, unspecified | CPT/HCPCS: 99214 ==

== ENCOUNTER 2024-10-24 07:42 | Outpatient (CLI) | payer MEDICARE, OTHER, SELFPAY ==
--- NOTE | 2024-10-24 | ECG_ITS ---
[facility] Test Date: 2024-10-24 Pat Name: Johanny Paulino Department: Room: Gender: Female Mounter Smoking Pipe: : 1960 Requested By: Urmila Saini Order Number: [id number] Nuñez MD: Ludwig Varma M.D. Interpretive Statements EXERCISE MIBI EXERCISE DATA: The patient was exercised by Krishna protocol. Baseline heart rate was 96 beats per minute. Baseline blood pressure was 128/75 millimeters of mercury. Maximal predicted heart rate [id number] beats per minute. Maximum heart rate achieved was 136, which was 87% of the maximum predicted heart rate. Maximum blood pressure was 162/79 millimeters of mercury. Total exercise time was 5 minutes and 1 second. Maximum METs achieved was 7. The reason for ending the test was completion of protocol. The patient complained of shortness of breath during the stress test, which then resolved at the end of the test. ELECTROCARDIOGRAM: BASELINE: Showed ectopic atrial rhythm, normal axis, no significant ST-T changes at the baseline noted. [] EXERCISE: At the peak exercise level, [] No significant ST-T changes suggestive of ischemia noted. [] RECOVERY: During the recovery period, heart rate dropped appropriately. No significant ST-T changes in the recovery suggestive of ischemia noted. [] CONCLUSION: 1. Exercise capacity is fair 2. Heart rate response was appropriate 3. Blood pressure response was appropriate 4. Symptoms not suggestive of ischemia. 5. Electrocardiogram portion of the stress test was not suggestive of ischemia. 6. Nuclear scan will be documented separately. Electronically Signed On 11-08-2024 13:17:47 CDT by Ludwig Varma M.D. [email or web address] [id number]
[2024-10-24 08:15] VITALS: BMI 21.2
--- NOTE | 2024-10-24 08:48 | NMCV_ITS ---
NM josephine perf SPECT r/s* [id number] Johanny Paulino Age: 64 Gender: F : 1960 Exam Date: 10/24/2024 08:49 Ordering Phys: Urmila Saini Technologist: ROCIO Lewis Exam [facility]: [facility] Indications: CP STRESS TEST Please see separate stress test report in [facility] for full findings IMAGE PROTOCOL Rest/Stress 1 Exercise Day Radiopharmaceutical Dose (mCi) Administration Site Administered by Rest: Tc-99m 10.6 IV ROCIO Lewis Sestamibi Stress:Tc-99m 32.8 IV ROCIO De La Rosa Sestamibi Rest: 24-Oct-2024 60 Discovery 630 Stress: 24-Oct-2024 15 Discovery 630 Radiopharmaceutical was injected at 86 % maximum heart rate. Images obtained in supine and prone position. SPECT RESULTS Technical Quality: Good Raw Data Analysis: Normal Image Corrections: No attenuation or motion correction applied Summed Stress Score: 0 Summed Rest Score: 1 Summed Difference Score: 0 PERFUSION FINDINGS SPECT images demonstrate homogeneous tracer distribution throughout the myocardium. FUNCTIONAL RESULTS (calculated via Gated SPECT) Stress Image LV EF (%): 85 Stress EDV (mL):41 TID: 1.13 Stress ESV (mL):6 FUNCTIONAL FINDINGS: There is normal left ventricular systolic function. IMPRESSIONS 1. Normal myocardial perfusion imaging with no evidence of ischemia. 2. LV systolic function is normal. Ludwig Varma MD (Electronically Signed) Final Date: 25 October 2024 12:34 S
[2024-10-24 09:39] VITALS: BP 111/62; PULSE 99
== END 2024-10-24 07:43 | disposition home or self-care (01) ==
LOC: CDL 07:44
PROVIDERS: PCP Electrodiagnostic Medicine; Visit Provider Nurse Practitioner Family
DX: R07.9 Chest pain, unspecified (principal); R06.02 Shortness of breath; R53.83 Other fatigue
CPT/HCPCS: 36415; 78452; 93017; A9500

== ENCOUNTER 2024-11-20 07:44 | Outpatient (CLI) | payer MEDICARE, OTHER, SELFPAY ==
--- NOTE | 2024-11-20 08:30 | USCV_ITS ---
Johanny Paulino Age: 64 Gender: F : 1960 Exam Date: 11/20/2024 08:02 Ordering Phys: Urmila Saini Technologist: JENNIFER [place] [facility] [place]: CP BP: 112 / 69 HR: 79 Rhythm: Sinus Technical Quality: Adequate MEASUREMENTS (Male / Female) Normal Values 2D ECHO LV Diastolic Diameter PLAX 4.2 cm 4.2 - 5.9 / 3.9 - 5.3 cm IVS Diastolic Thickness 0.7 cm 0.6 - 1.0 / 0.6 - 0.9 cm IVS Systolic Thickness 1.4 cm LVPW Diastolic Thickness 1.2 cm 0.6 - 1.0 / 0.6 - 0.9 cm LVPW Systolic Thickness 1.3 cm LVOT Diameter 2.0 cm LV Ejection Fraction 2D Teich 64.5 % LV Ejection Fraction MOD 4C 65.1 % LV Ejection Fraction MOD 2C 46.1 % LV Ejection Fraction 2C AL 45.9 % LA Diameter 3.4 cm RA Systolic Volume 4C AL 33.3 ml RA Systolic Volume 4C MOD 31.8 ml LA Sys Volume AL 33.2 cm cubed LA Sys Volume Index AL 21.4 cm cubed/m squared Aorta at Sinotubular Diameter 2.0 cm IVC Diameter 2.7 cm M-MODE LA Ao Ratio MM 1.6 AV Cusp Separation MM 1.2 cm DOPPLER AV Peak Velocity 110.0 cm/s LVOT Peak Velocity 93.0 cm/s AV Area Cont Eq vti 2.7 cm squared AV Area Cont Eq pk 2.6 cm squared MV Peak Velocity 98.0 cm/s MV Area PHT 5.7 cm squared Mitral E to A Ratio 0.7 TR Peak Velocity 117.0 cm/s TR Peak Gradient 5.5 mmHg TV Peak E Velocity 107.0 cm/s PV Peak Velocity 114.0 cm/s FINDINGS Left Ventricle Normal left ventricular size, systolic function and wall thickness, with no regional wall motion abnormalities. Left ventricular ejection fraction is estimated at 60 %. Grade I/IV diastolic dysfunction (abnormal relaxation filling pattern), normal to mildly elevated filling pressures. Right Ventricle The right ventricle is normal in size and function. Right Atrium The right atrium is normal in size. Left Atrium The left atrium is normal in size. Mitral Valve Structurally normal mitral valve without significant stenosis or prolapse. There is no mitral regurgitation. Aortic Valve Mild aortic valve calcification. No aortic valve stenosis. Trace aortic valve regurgitation. Tricuspid Valve Structurally normal tricuspid valve without significant stenosis or regurgitation. Pulmonary artery systolic pressure is normal. Pulmonic Valve Structurally normal pulmonic valve without significant stenosis. There is no pulmonic regurgitation. Pericardium Normal pericardium without effusion. Aorta Normal ascending aorta dimension. IVC The inferior vena cava appears normal. CONCLUSIONS Normal left ventricular size, systolic function and wall thickness, with no regional wall motion abnormalities. Left ventricular ejection fraction is estimated at 60 %. Grade I/IV diastolic dysfunction (abnormal relaxation filling pattern), normal to mildly elevated filling pressures. There is no pericardial effusion. No significant valve abnormalities. Right atrial pressure is around 5 mm of mercury. Tamar Cortez MD (Electronically Signed) Final Date: 21 November 2024 21:25 S
== END 2024-11-20 07:45 | disposition home or self-care (01) ==
LOC: RAD 07:47
PROVIDERS: PCP Electrodiagnostic Medicine; Visit Provider Nurse Practitioner Family
DX: I25.10 Atherosclerotic heart disease of native coronary artery without angina pectoris (principal); R93.1 Abnormal findings on diagnostic imaging of heart and coronary circulation; I35.8 Other nonrheumatic aortic valve disorders
CPT/HCPCS: 93306

== ENCOUNTER → 2025-04-02 13:23 | Outpatient (BNVA) | payer MEDICARE, OTHER, SELFPAY | PROVIDERS: PCP Electrodiagnostic Medicine; Visit Provider Internal Medicine | DX: I25.10 Atherosclerotic heart disease of native coronary artery without angina pectoris (principal); I10 Essential (primary) hypertension; E78.5 Hyperlipidemia, unspecified; F17.210 Nicotine dependence, cigarettes, uncomplicated | CPT/HCPCS: 99214 ==